=== PATIENT | male | born 1975 | race African-American/Black ===

== ENCOUNTER 2018-12-10 16:17 | Emergency (ER) | payer OTHER ==
[~2018-12-10] VITALS: Ht 185.4 cm; Wt 103.4 kg
[2018-12-10 19:10] LABS: ABSOLUTE NEUTROPHILS 10.7 thou/uL (1.4-8.2); BASOPHILS 0.3 % (0.0-2.0); EOSINOPHILS 0.4 % (0.0-3.0); HEMATOCRIT 45.9 % (42.0-52.0); HEMOGLOBIN 15.7 gm/dL (14.0-18.0); LYMPHOCYTES 3.9 % (24.0-44.0); MCH 30.7 pg (26.0-34.0); MCHC 34.1 g/dL (28.0-37.0); MCV 90.1 fL (80.0-100.0); MONOCYTES 4.8 % (1.0-8.0); PLATELET COUNT 200 thou/uL (150-400); POLYS 90.6 % (36.0-66.0); RDW 13.4 % (10.5-14.5); WBC 11.8 thou/uL (4.0-11.0)
[2018-12-10 19:18] LABS: CALCIUM 9.1 mg/dL (8.5-10.1); CREATININE 1.4 mg/dL (0.7-1.3)
[2018-12-10 19:24] LABS: ALBUMIN 3.9 g/dL (3.4-5.0); TOTAL BILIRUBIN 0.3 mg/dL (<0.1-1.0); TOTAL PROTEIN 7.9 g/dL (6.4-8.2)
[2018-12-10] MEDS ORDERED: ZOFRAN ODT4 MG PO (20:40)
[2018-12-10] MEDS ORDERED: IBUPROFEN 600600 M1 PO (20:40)
[2018-12-10 21:02] VITALS: BP 107/47
== END 2018-12-10 21:04 | disposition home or self-care (01) ==
LOC: ER 16:17
PROVIDERS: Nurse Practitioner Family
DX: J11.1 Influenza due to unidentified influenza virus with other respiratory manifestations (principal); N17.9 Acute kidney failure, unspecified; R11.2 Nausea with vomiting, unspecified